=== PATIENT | male | born 1945 | race Caucasian/White ===

== ENCOUNTER 2018-10-07 09:22 | Emergency (ER) | payer OTHER, BC, SELFPAY ==
[2018-10-07 09:29] VITALS: BP 161/94; PULSE 72; RESP 18; TEMP 36.5; O2SAT 91
--- NOTE | 2018-10-07 09:40 | DI.RAD_ITS ---
SYMPTOM/DIAGNOSIS: FELL, ? FX, PAIN LEFT SHOULDER: There are no prior comparison exams. No fracture or dislocation is seen. There is mild spurring at the undersurface of the acromion. There are severe degenerative changes of the glenohumeral joint, greater inferiorly. IMPRESSION: Severe degenerative changes of the glenohumeral joint. LEFT ELBOW: There is a fracture extending through the olecranon with separation of approximately 5 mm. Additional nondisplaced fractures are seen more proximally. There are a few tiny fracture fragments near the main fracture site. There is marked posterior soft tissue swelling as well as a joint effusion. The distal humeral and proximal radius appear intact. IMPRESSION: Olecranon fracture.
[2018-10-07] MEDS: Lidocaine 5% Patch 1 PATCH TP (09:57)
--- NOTE | 2018-10-07 10:13 | W.ED.GENAD ---
Discharge Plan Disposition Patient Disposition: HOME Condition: Good Discharge Details Chief Complaint: Orthopedic Clinical Impression: Fall, Fracture, olecranon, Acute pain of left shoulder Primary Care Provider: None,None ED Provider: Jose Francisco Cota Home Meds and New Rx's Prescriptions: New acetaminophen [Mapap Extra Strength] 500 MG tablet 1,000 mg PO Q6H 5 Days Qty: 60 RF: 0 ibuprofen [Motrin IB] 200 MG tablet 600 mg PO Q6H 5 Days Qty: 60 RF: 0 hydrocodone-acetaminophen [Roff] 7.5-325 mg tablet 1 tab PO Q6H Qty: 5 RF: 0 No Action aspirin 81 MG tablet,chewable 81 mg PO DAILY RF: 0 valsartan 40 MG tablet PO DAILY RF: 0 Discharge Instructions Instructions: Elbow Fracture in Adults (ED) Additional Instructions: Please take the Tylenol and Motrin as needed for the pain. Please take the Roff is only as needed for breakthrough pain. Please do not take the Roff and the Tylenol together as they can interact and both have acetaminophen in them. Please follow-up immediately with Dr. Rodarte. If you notice any worsening of your symptoms, or any new symptoms such as vomiting, diarrhea, fever, chills, shortness of breath, chest pain, numbness, weakness, or fainting , please return immediately to the emergency department for reevaluation. Please follow up with your primary care provider as soon as possible for reassessment and reevaluation. As always, it was a pleasure participating in your medical care today. Referrals: Andrei Rodarte MD [ [facility] STAFF PHYSICIAN] - Medical Decision Making This is a pleasant 72-year-old male who presents for evaluation of left shoulder and elbow pain after a fall. He slipped on some ice while at work, landed mainly on his left shoulder and left elbow. He very gently hit his head on the ground, but denies any loss of consciousness or pain. He is on no significant blood thinners. Physical exam demonstrates no head pain, neck pain, or other abnormalities aside for left shoulder and left elbow pain. The patient is clearly neurovascular intact on exam at this time. Differential includes proximal humeral fracture versus less likely shoulder dislocation. We will get an x-ray to also evaluate for potential elbow injury/fracture. 12 cc of 2% lidocaine with 0.5% bupivacaine were injected into his left shoulder space, and the patient had notable improvement of his pain with. 11:18 AM Patient's x-ray of the right shoulder have returned negative and there is no acute process noted. However the x-ray of the left elbow does demonstrate notable fracture of the left elbow at the olecranon. There is evidence of displacement. The patient remains neurovascularly intact distal to the injury site. Dr. Rodarte is a personal friend of the patient, and did come and evaluate the patient. He does recommend slinging for the time being with close orthopedic follow-up for potential surgery. Being neurovascularly intact with no other acute process sling was placed and the patient continues to demonstrate brisk capillary refill and normal sensation. Will be discharged home with close follow-up with Dr. Rodarte. I have extensively reviewed the treatment plan and discharge instructions with the patient and their family. I have addressed all patient concerns at this time. The patient and family was made aware of what symptoms to monitor for that would warrant a return to the emergency department. Discussed the plan with the patient and family, they demonstrate verbal understanding and agreement with our assessment and plan at this time. COMPARISON: No relevant prior studies available. FINDINGS: Bones/joints: Displaced fracture of the olecranon. There may be additional nondisplaced fractures in the more proximal ulna.. Degenerative changes in the humeral ulnar joint. There is no evidence of malalignment or dislocation. Soft tissues: Anterior joint effusion IMPRESSION: Displaced fracture of the olecranon. There may be additional nondisplaced fractures in the more proximal ulna.. Dictated and Authenticated by: Valorie Marques MD. COMPARISON: No relevant prior studies available. FINDINGS: Bones/joints: Significant Degenerative changes in the glenohumeral joint. There is no evidence of acute fracture.There is no evidence of malalignment or dislocation.. Soft tissues: Normal. IMPRESSION: 1. Significant Degenerative changes in the glenohumeral joint. 2. There is no evidence of acute fracture.. Dictated and Authenticated by: Valorie Marques MD. HPI General Date/Time Provider Initiated Documentation: 10/07/18 09:35. HPI Narrative: This is a 72-year-old male with no significant past medical history except for mild hypertension who present today for evaluation of left shoulder pain. The patient states that he was walking outside when he slipped and caught his fall with his elbows and left shoulder. This happened roughly 45 minutes prior to arrival. 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 Came here for further evaluation. He was wearing a thick, and did very lightly hit his head, but he denied any pain or loss of consciousness. He is not on any blood thinners. He denies any neck back or chest pain. He denies pain in his lower extremities or his right arm. Pain is mostly present in his left shoulder and left elbow, worse with movement. He denies any numbness or tingling. He denies any other complaints or modifying factors at this time. He has not taken any Tylenol or Motrin. Related Data Home Medications Medication Instructions Recorded Confirmed aspirin 81 mg PO DAILY 08/21/16 08/21/16 valsartan mg PO DAILY 08/21/16 acetaminophen [Mapap Extra 1,000 mg PO Q6H 5 Days #60 tab 10/07/18 Strength] hydrocodone-acetaminophen [Roff] 1 tab PO Q6H #5 tab 10/07/18 ibuprofen [Motrin Ib] 600 mg PO Q6H 5 Days #60 tab 10/07/18 Previous Rx's Medication Instructions Recorded acetaminophen [Mapap Extra 1,000 mg PO Q6H 5 Days #60 tab 10/07/18 Strength] hydrocodone-acetaminophen [Roff] 1 tab PO Q6H #5 tab 10/07/18 ibuprofen [Motrin Ib] 600 mg PO Q6H 5 Days #60 tab 10/07/18 Allergies Allergy/AdvReac Type Severity Reaction Status Date / Time lisinopril [From Zestril] Allergy Severe Swelling/Ed Unverified 10/07/18 09:33 bubba General Stated Complaint: Orthopedic TAMI: 3 Review of Systems Review of Systems All systems reviewed & are unremarkable except as noted in HPI and below Exam Narrative Exam Narrative: 1.Const: Well-nourished, Well-developed, appearing stated age 2.Eyes: PERRL, no conjunctival injection, and symmetrical lids. 3.ENT: Atraumatic external nose and ears. Moist MM. Neck: Symmetric, trachea midline, No thyromegaly. Slightly narrow external auditory canals peer there is no evidence of raccoon eyes, kelley sign, CSF rhinorrhea, mastoid tenderness, cranial crepitus, hemotympanum, exophthalmos, or hyphema. Patient demonstrates intact dentition with no signs of tooth avulsion or fracture, no signs of jaw deformity, no evidence of a LeFort's fracture, with an intact palate, nose and orbital region. There is no evidence of a nasal septal hematoma. No proptosis. Jaw closes symmetrically. Airway is clear. 4.CVS: +S1/S2, No murmurs or gallops. Peripheral pulses 2+ and equal in all extremities. Brisk capillary refill in all extremities. 5.RESP: Unlabored respiratory effort. Clear to auscultation bilaterally. No wheezes rales or rhonchi 6.GI: Soft, Nontender/Nondistended, No hepatosplenomegaly. No guarding or rebound. 7.MSK: No midline tenderness to palpation over the CTLS spine. Normal ROM in flexion, extension, side bend, and rotation. Patient has +5 out of 5 strength in the lower extremities in dorsiflexion and plantarflexion, knee flexion and extension, hip flexion and extension. There is +2 over 2 dorsalis pedis pulses bilaterally. There is normal sensation to the skin with light touch at the foot, knee, and hip. Normal saddle sensation. Good sensation over the deep sural nerve area bilaterally. Rectal exam deferred. +5 out of 5 strength in the medial, ulnar, radial nerve distribution bilaterally in the hands as well as intact light touch sensation to these dermatomes on the hands. Patient demonstrates mild swelling the anterior aspect of the left shoulder just below what appears to be the head of the humerus. It of the humerus appears to be in place, however the swelling is slightly atypical. Notable pain in that area. Decreased range of motion secondary to pain. Patient also demonstrates pain in the lateral medial and olcrenon aspect of the left elbow. No evidence of bruising or deformity. No significant swelling. Pain worse with movement. No evidence of nerve compromise at this time, sensation intact in the hand, and in the axillary region. Capillary refill is brisk in all fingers, radial pulse +2 bilaterally. 8.Skin: Warm, Dry. No rashes or lesions. 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 Sensation grossly intact, no focal neurologic deficits. 10.Psych: (AAO) x3. Appropriate mood and affect Course Vital Signs Temperature 36.5 C 10/07/18 09:29 Pulse 72 10/07/18 09:29 Respiratory Rate 18 10/07/18 09:29 Blood Pressure 161/94 H 10/07/18 09:29 Pulse Oximetry 91 L 10/07/18 09:29 Temperature 36.5 C 10/07/18 09:29 Temperature Source Temporal Artery Scan 10/07/18 09:29 Pulse 72 10/07/18 09:29 Respiratory Rate 18 10/07/18 09:29 Respiratory Effort Non-Labored 10/07/18 09:36 Blood Pressure 161/94 H 10/07/18 09:29 Blood Pressure Position Sitting 10/07/18 09:29 Pulse Oximetry 91 L 10/07/18 09:29 Oxygen Delivery Method Room Air 10/07/18 09:29 Oxygen Flow Rate 0 10/07/18 09:29 Pain Level 5 10/07/18 09:34
--- NOTE | 2018-10-07 10:20 | ED.GENADUL_ITS ---
Discharge Plan Disposition Patient Disposition: HOME Condition: Good Discharge Details Chief Complaint: Orthopedic Clinical Impression: Fall, Fracture, olecranon, Acute pain of left shoulder Primary Care Provider: None,None ED Provider: Jose Francisco Cota Home Meds and New Rx's Prescriptions: New acetaminophen [Mapap Extra Strength] 500 MG tablet 1,000 mg PO Q6H 5 Days Qty: 60 RF: 0 ibuprofen [Motrin IB] 200 MG tablet 600 mg PO Q6H 5 Days Qty: 60 RF: 0 hydrocodone-acetaminophen [[place]] 7.5-325 mg tablet 1 tab PO Q6H Qty: 5 RF: 0 No Action aspirin 81 MG tablet,chewable 81 mg PO DAILY RF: 0 valsartan 40 MG tablet PO DAILY RF: 0 Discharge Instructions Instructions: Elbow Fracture in Adults (ED) Additional Instructions: Please take the Tylenol and Motrin as needed for the pain. Please take the [place] is only as needed for breakthrough pain. Please do not take the [place] and the Tylenol together as they can interact and both have acetaminophen in them. Please follow-up immediately with Dr. Rodarte. If you notice any worsening of your symptoms, or any new symptoms such as vomiting, diarrhea, fever, chills, shortness of breath, chest pain, numbness, weakness, or fainting , please return immediately to the emergency department for reevaluation. Please follow up with your primary care provider as soon as possible for reassessment and reevaluation. As always, it was a pleasure participating in your medical care today. Referrals: Andrei Rodarte MD [ [facility]FF PHYSICIAN] - Medical Decision Making This is a pleasant 72-year-old male who presents for evaluation of left shoulder and elbow pain after a fall. He slipped on some ice while at work, landed mainly on his left shoulder and left elbow. He very gently hit his head on the ground, but denies any loss of consciousness or pain. He is on no significant blood thinners. Physical exam demonstrates no head pain, neck pain, or other abnormalities aside for left shoulder and left elbow pain. The patient is clearly neurovascular intact on exam at this time. Differential includes proximal humeral fracture versus less likely shoulder dislocation. We will get an x-ray to also evaluate for potential elbow injury/fracture. 12 cc of 2% lidocaine with 0.5% bupivacaine were injected into his left shoulder space, and the patient had notable improvement of his pain with. 11:18 AM Patient's x-ray of the right shoulder have returned negative and there is no acute process noted. However the x-ray of the left elbow does demonstrate notable fracture of the left elbow at the olecranon. There is evidence of displacement. The patient remains neurovascularly intact distal to the injury site. Dr. Rodarte is a personal friend of the patient, and did come and evaluate the patient. He does recommend slinging for the time being with close orthopedic follow-up for potential surgery. Being neurovascularly intact with no other acute process sling was placed and the patient continues to demonstrate brisk capillary refill and normal sensation. Will be discharged home with close follow-up with Dr. Rodarte. I have extensively reviewed the treatment plan and discharge instructions with the patient and their family. I have addressed all patient concerns at this time. The patient and family was made aware of what symptoms to monitor for that would warrant a return to the emergency department. Discussed the plan with the patient and family, they demonstrate verbal understanding and agreement with our assessment and plan at this time. COMPARISON: No relevant prior studies available. FINDINGS: Bones/joints: Displaced fracture of the olecranon. There may be additional nondisplaced fractures in the more proximal ulna.. Degenerative changes in the humeral ulnar joint. There is no evidence of malalignment or dislocation. Soft tissues: Anterior joint effusion IMPRESSION: Displaced fracture of the olecranon. There may be additional nondisplaced fractures in the more proximal ulna.. Dictated and Authenticated by: Valorie Marques MD. COMPARISON: No relevant prior studies available. FINDINGS: Bones/joints: Significant Degenerative changes in the glenohumeral joint. There is no evidence of acute fracture.There is no evidence of malalignment or dislocation.. Soft tissues: Normal. IMPRESSION: 1. Significant Degenerative changes in the glenohumeral joint. 2. There is no evidence of acute fracture.. Dictated and Authenticated by: Valorie Marques MD. HPI General Date/Time Provider Initiated Documentation: 10/07/18 09:35 . HPI Narrative: This is a 72-year-old male with no significant past medical history except for mild hypertension who present today for evaluation of left shoulder pain. The patient states that he was walking outside when he slipped and caught his fall with his elbows and left shoulder. This happened roughly 45 minutes prior to arrival. 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 Came here for further evaluation. He was wearing a thick, and did very lightly hit his head, but he denied any pain or loss of consciousness. He is not on any blood thinners. He denies any neck back or chest pain. He denies pain in his lower extremities or his right arm. Pain is mostly present in his left shoulder and left elbow, worse with movement. He denies any numbness or tingling. He denies any other complaints or modifying factors at this time. He has not taken any Tylenol or Motrin. Related Data Home Medications Medication Instructions Recorded Confirmed aspirin 81 mg PO DAILY 08/21/16 08/21/16 valsartan mg PO DAILY 08/21/16 acetaminophen [Mapap Extra 1,000 mg PO Q6H 5 Days #60 tab 10/07/18 Strength] hydrocodone-acetaminophen [[place]] 1 tab PO Q6H #5 tab 10/07/18 ibuprofen [Motrin Ib] 600 mg PO Q6H 5 Days #60 tab 10/07/18 Previous Rx's Medication Instructions Recorded acetaminophen [Mapap Extra 1,000 mg PO Q6H 5 Days #60 tab 10/07/18 Strength] hydrocodone-acetaminophen [[place]] 1 tab PO Q6H #5 tab 10/07/18 ibuprofen [Motrin Ib] 600 mg PO Q6H 5 Days #60 tab 10/07/18 Allergies Allergy/AdvReac Type Severity Reaction Status Date / Time lisinopril [From Zestril] Allergy Severe Swelling/Ed Unverified 10/07/18 09:33 bubba General Stated Complaint: Orthopedic TAMI: 3 Review of Systems Review of Systems All systems reviewed & are unremarkable except as noted in HPI and below Exam Narrative Exam Narrative: 1.Const: Well-nourished, Well-developed, appearing stated age 2.Eyes: PERRL, no conjunctival injection, and symmetrical lids. 3.ENT: Atraumatic external nose and ears. Moist MM. Neck: Symmetric, trachea midline, No thyromegaly. Slightly narrow external auditory canals peer there is no evidence of raccoon eyes, kelley sign, CSF rhinorrhea, mastoid tenderness, cranial crepitus, hemotympanum, exophthalmos, or hyphema. Patient demonstrates intact dentition with no signs of tooth avulsion or fracture, no signs of jaw deformity, no evidence of a LeFort's fracture, with an intact palate, nose and orbital region. There is no evidence of a nasal septal hematoma. No proptosis. Jaw closes symmetrically. Airway is clear. 4.CVS: +S1/S2, No murmurs or gallops. Peripheral pulses 2+ and equal in all extremities. Brisk capillary refill in all extremities. 5.RESP: Unlabored respiratory effort. Clear to auscultation bilaterally. No wheezes rales or rhonchi 6.GI: Soft, Nontender/Nondistended, No hepatosplenomegaly. No guarding or rebound. 7.MSK: No midline tenderness to palpation over the CTLS spine. Normal ROM in flexion, extension, side bend, and rotation. Patient has +5 out of 5 strength in the lower extremities in dorsiflexion and plantarflexion, knee flexion and extension, hip flexion and extension. There is +2 over 2 dorsalis pedis pulses bilaterally. There is normal sensation to the skin with light touch at the foot, knee, and hip. Normal saddle sensation. Good sensation over the deep sural nerve area bilaterally. Rectal exam deferred. +5 out of 5 strength in the medial, ulnar, radial nerve distribution bilaterally in the hands as well as intact light touch sensation to these dermatomes on the hands. Patient demonstrates mild swelling the anterior aspect of the left shoulder just below what appears to be the head of the humerus. It of the humerus appears to be in place, however the swelling is slightly atypical. Notable pain in that area. Decreased range of motion secondary to pain. Patient also demonstrates pain in the lateral medial and olcrenon aspect of the left elbow. No evidence of bruising or deformity. No significant swelling. Pain worse with movement. No evidence of nerve compromise at this time, sensation intact in the hand, and in the axillary region. Capillary refill is brisk in all fingers, radial pulse +2 bilaterally. 8.Skin: Warm, Dry. No rashes or lesions. 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 Sensation grossly intact, no focal neurologic deficits. 10.Psych: (AAO) x3. Appropriate mood and affect Course Vital Signs Temperature 36.5 C 10/07/18 09:29 Pulse 72 10/07/18 09:29 Respiratory Rate 18 10/07/18 09:29 Blood Pressure 161/94 H 10/07/18 09:29 Pulse Oximetry 91 L 10/07/18 09:29 Temperature 36.5 C 10/07/18 09:29 Temperature Source Temporal Artery Scan 10/07/18 09:29 Pulse 72 10/07/18 09:29 Respiratory Rate 18 10/07/18 09:29 Respiratory Effort Non-Labored 10/07/18 09:36 Blood Pressure 161/94 H 10/07/18 09:29 Blood Pressure Position Sitting 10/07/18 09:29 Pulse Oximetry 91 L 10/07/18 09:29 Oxygen Delivery Method Room Air 10/07/18 09:29 Oxygen Flow Rate 0 10/07/18 09:29 Pain Level 5 10/07/18 09:34
--- NOTE | 2018-10-07 10:55 | DI.VRAD_ITS ---
EXAM: XR Left Elbow Complete, 3 or more Views EXAM DATE/TIME: 10/07/2018 10:23 AM CLINICAL HISTORY: 72 years old, male; Injury or trauma; Fall; Initial encounter; Blunt trauma (contusions or hematomas; Elbow; Left TECHNIQUE: XR Left elbow, 3 or more views. COMPARISON: No relevant prior studies available. FINDINGS: Bones/joints: Displaced fracture of the olecranon. There may be additional nondisplaced fractures in the more proximal ulna.. Degenerative changes in the humeral ulnar joint. There is no evidence of malalignment or dislocation. Soft tissues: Anterior joint effusion IMPRESSION: Displaced fracture of the olecranon. There may be additional nondisplaced fractures in the more proximal ulna.. Dictated and Authenticated by: Valorie Marques MD. Ordering:REGINE Felton MD
--- NOTE | 2018-10-07 11:00 | DI.VRAD_ITS ---
EXAM: XR Left Shoulder Complete, 2 or More Views EXAM DATE/TIME: 10/07/2018 10:24 AM CLINICAL HISTORY: 72 years old, male; Pain; Shoulder; Left TECHNIQUE: XR Left shoulder complete 2 or more views. COMPARISON: No relevant prior studies available. FINDINGS: Bones/joints: Significant Degenerative changes in the glenohumeral joint. There is no evidence of acute fracture.There is no evidence of malalignment or dislocation.. Soft tissues: Normal. IMPRESSION: 1. Significant Degenerative changes in the glenohumeral joint. 2. There is no evidence of acute fracture.. Dictated and Authenticated by: Valorie Marques MD. Ordering:REGINE Felton MD
--- NOTE | 2018-10-07 15:36 | W.ORTHOCONSU ---
Date of service: 10/07/18 Time of Service: 10:36 History of Present Illness Chief Complaint: Left elbow and shoulder pain Narrative: Gomez is a 72-year-old who works and volunteers at [employer]. I have no bill outside the hospital for some years. He was walking into the [employer] [place] today when he slipped on some ice and landed with his arm slightly extended and behind him. He landed primarily on the posterior aspect the left elbow. He did immediate pain in his shoulder as well as in the elbow. His pain in the shoulder was anteriorly and the pain in the elbow was over the olecranon, posteriorly. patrol captain placed him into a sling and he was then brought to the emergency department. At rest, he does not have much pain but he tries to move the left shoulder he feels like he is unable to. He denies any numbness or tingling. He may have bumped his head he states but he had no loss of conscious and recalls all details of the event. He has had no previous issue with the left shoulder nor elbow but only occasional discomfort relieved with activity modification and anti-inflammatories. Consult [facility] with left shoulder injury and left olecranon fracture Assessment and Plan (1) Injury of left shoulder: Current visit: Yes Status: Acute Given the mechanism, I am concerned about possible rotator cuff injury. With the axial load of the arm in an extended position there is a concern for a near dislocation event which could have possibly torn subscapularis other aspects of the rotator cuff. X-rays of the left shoulder show some arthritic change, especially inferiorly. However, no malpositioning of the glenohumeral joint. There is no obvious osteophyte fracture or small glenoid fracture. Without previous issue of the left shoulder and his drastic examination and the known fracture of the left olecranon which will require surgery, I do think there is indication for an MRI of the left shoulder to evaluate the rotator cuff. Given the ipsilateral injury to the olecranon needing surgery, if there was a traumatic tearing of the rotator cuff I would offer early fixation. Qualifiers: Encounter type: initial encounter Qualified Code(s): S49.92XA - Unspecified injury of left shoulder and upper arm, initial encounter (2) Displaced fracture of olecranon process of left ulna with intra-articular extension: Current visit: Yes Status: Acute X-rays of the left elbow demonstrate a displaced olecranon fracture. There is one primary component the olecranon to to primary pieces with a small secondary fracture line seen more proximally which may be incomplete. No other associated radial fracture seen. No distal humerus fracture. Given this injury I did recommend surgery for Gomez. I discussed him the technical details of a tension band construct versus plate and screws. He has no particular preference. I outlined the risk of the procedure to include bleeding, infection, pain, stiffness, damage to nerves and vessels, damage to muscle tendons, malunion, nonunion, hardware prominence, hardware failure, need for repeat procedures, skin breakdown. Despite these risk, he does elect to proceed. Again, given the shoulder injury, I would like to obtain an MRI first. He was placed to a sling for the left arm. I will expedite the MRI this week and likely fix this as soon as we have an understanding of what is going on with the shoulder. Qualifiers: Encounter type: initial encounter Fracture type: closed Qualified Code(s): S52.032A - Displaced fracture of olecranon process with intraarticular extension of left ulna, initial encounter for closed fracture Review of Systems Review of Systems All systems reviewed & are unremarkable except as noted in HPI and below COUNTS INCLUDE 234 BEDS AT THE [facility] Medical History Hypertension (Chronic) Exam Narrative Exam Narrative: Gomez is in no acute distress. He is sitting upright on the stretcher. Alert and oriented x3. Head is normocephalic and atraumatic. Left arm is in a sling. Evaluation of the left arm shows some swelling and pain to palpation of the anterior aspect the shoulder. Swelling is seen primarily anteriorly. There is no pain to palpation of the clavicle and over the acromion. There is exquisite pain to palpation over the anterior aspect of the proximal humerus at the level of the lesser tuberosity just distal to the acromion. There is no pain to palpation down the length of the humerus. When he relaxes, I am able to passively move the shoulder without any pain. When I asked him to actively move the shoulder he has exquisite pain and is unable to abduct or forward flex the left arm. The left elbow show some fullness and swelling over the olecranon with mild crepitus and pain. There is a palpable defect. Range of motion was not tested. No pain along the medial or lateral epicondyles. Sensation intact light touch of the axilla, median, radial, ulnar nerves. Hand is warm well perfused. Results Last Vital Signs Temp 36.5 C 10/07/18 09:29 Pulse 72 10/07/18 09:29 Resp 18 10/07/18 09:29 BP 161/94 H 10/07/18 09:29 Pulse Ox 91 L 10/07/18 09:29
--- NOTE | 2018-10-08 20:39 | OCONE_ITS ---
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 I have no bill outside the hospital for some years. He was walking into the [employer] [place] today when he slipped on some ice and landed with his arm slightly extended and behind him. He landed primarily on the posterior aspect the left elbow. He did immediate pain in his shoulder as well as in the elbow. His pain in the shoulder was anteriorly and the pain in the elbow was over the olecranon, posteriorly. bellmaker placed him into a sling and he was then brought to the emergency department. At rest, he does not have much pain but he tries to move the left shoulder he feels like he is unable to. He denies any numbness or tingling. He may have bumped his head he states but he had no loss of conscious and recalls all details of the event. He has had no previous issue with the left shoulder nor elbow but only occasional discomfort relieved with a ctivity modification and anti-inflammatories. Consult [facility] Fall with left shoulder injury and left olecranon fracture Assessment and Plan (1) Injury of left shoulder: Current visit: Yes Status: Acute Given the mechanism, I am concerned about possible rotator cuff injury. With the axial load of the arm in an extended position there is a concern for a near dislocation event which could have possibly torn subscapularis other aspects of the rotator cuff. X-rays of the left shoulder show some arthritic change, especially inferiorly. However, no malpositioning of the glenohumeral joint. There is no obvious osteophyte fracture or small glenoid fracture. Without previous issue of the left shoulder and his drastic examination and the known fracture of the left olecranon which will require surgery, I do think there is indication for an MRI of the left shoulder to evaluate the rotator cuff. Given the ipsilateral injury to the olecranon needing surgery, if there was a traumatic tearing of the rotator cuff I would offer early fixation. Qualifiers: Encounter type: initial encounter Qualified Code(s): S49.92XA - Unspecified injury of left shoulder and upper arm, initial encounter (2) Displaced fracture of olecranon process of left ulna with intra-articular extension: Current visit: Yes Status: Acute X-rays of the left elbow demonstrate a displaced olecranon fracture. There is one primary component the olecranon to to primary pieces with a small secondary fracture line seen more proximally which may be incomplete. No other associated radial fracture seen. No distal humerus fracture. Given this injury I did recommend surgery for Gomez. I discussed him the technical details of a tension band construct versus plate and screws. He has no particular preference. I outlined the risk of the procedure to include bleeding, infection, pain, stiffness, damage to nerves and vessels, damage to muscle tendons, malunion, nonunion, hardware prominence, hardware failure, need for repeat procedures, skin breakdown. Despite these risk, he does elect to proceed. Again, given the shoulder injury, I would like to obtain an MRI first. He was placed to a sling for the left arm. I will expedite the MRI this week and likely fix this as soon as we have an understanding of what is going on with the shoulder. Qualifiers: Encounter type: initial encounter Fracture type: closed Qualified Co de(s): S52.032A - Displaced fracture of olecranon process with intraarticular extension of left ulna, initial encounter for closed fracture Review of Systems Review of Systems All systems reviewed & are unremarkable except as noted in HPI and below PFSH Medical History Hypertension (Chronic) Exam Narrative Exam Narrative: Gomez is in no acute distress. He is sitting upright on the stretcher. Alert and oriented x3. Head is normocephalic and atraumatic. Left arm is in a sling. Evaluation of the left arm shows some swelling and pain to palpation of the anterior aspect the shoulder. Swelling is seen primarily anteriorly. There is no pain to palpation of the clavicle and over the acromion. There is exquisite pain to palpation over the anterior aspect of the proximal humerus at the level of the lesser tuberosity just distal to the acromion. There is no pain to palpation down the length of the humerus. When he relaxes, I am able to passively move the shoulder without any pain. When I asked him to actively move the shoulder he has exquisite pain and is unable to abduct or forward flex the left arm. The left elbow show some fullness and swelling over the olecranon with mild crepitus and pain. There is a palpable defect. Range of motion was not tested. No pain along the medial or lateral epicondyles. Sensation intact light touch of the axilla, median, radial, ulnar nerves. Hand is warm well perfused. Results Last Vital Signs Temp 36.5 C 10/07/18 09:29 Pulse 72 10/07/18 09:29 Resp 18 10/07/18 09:29 BP 161/94 H 10/07/18 09:29 Pulse Ox 91 L 10/07/18 09:29
== END 2018-10-07 11:48 | disposition home or self-care (01) ==
PROVIDERS: Emergency Provider Student in an Organized Health Care Education/Training Program
DX: S49.92XA Unspecified injury of left shoulder and upper arm, initial encounter (principal); S52.032A Displaced fracture of olecranon process with intraarticular extension of left ulna, initial encounter for closed fracture; W00.0XXA Fall on same level due to ice and snow, initial encounter; I10 Essential (primary) hypertension
CPT/HCPCS: 64450; 99253; 99284; 73030; 73080; 99281; L3670

== ENCOUNTER 2018-10-09 07:58 | Outpatient (CLI) | payer OTHER, MEDICARE, BC, SELFPAY ==
--- NOTE | 2018-10-09 11:00 | DI.MRI_ITS ---
SYMPTOM/DIAGNOSIS: PAIN, FELL, ROTATOR CUFF TEAR, S46.011A LEFT SHOULDER MRI: Comparison is made with plain films dated 10/07/18. Proton density and fat suppressed T 2 axial and coronal and T 1 and fat suppressed T 2 sagittal sequences were performed. The exam is limited by patient motion and poor fat suppression on the lateral aspect of the images. There is a large amount of edema in the subcutaneous fat. There is fluid in the joint as well as subcoracoid bursa. There is a full thickness supraspinatus tear with retraction of the tendon to the level of the acromion. There is some spurring at the undersurface of the acromion. There is also a tear with retraction of the infraspinatus tendon. There is severe atrophy of the infraspinatus muscle and approximately 50% of muscle atrophy in the supraspinatus muscle. The teres minor tendon appears intact. There is no teres minor muscle atrophy. The subscapularis tendon also shows a full thickness tear and retraction to the level of the glenoid. The biceps tendon is not well seen and may also be torn. There is a large amount of high signal in the anterior deltoid muscle. There appears to be a large muscle tear of the anterior deltoid muscle with disruption of muscle fibers. No fracture is identified. There are degenerative changes of the glenohumeral joint. IMPRESSION: Full thickness tears with retraction of the supraspinatus, infraspinatus and subscapularis tendons. Biceps tendon is also likely torn. Tear of the anterior deltoid muscle. Given the muscle atrophy, the infraspinatus and supraspinatus tendon tears could be chronic.
== END 2018-10-09 08:18 ==
PROVIDERS: Visit Provider Student in an Organized Health Care Education/Training Program
DX: M25.512 Pain in left shoulder (principal); S43.011A Anterior subluxation of right humerus, initial encounter; W19.XXXA Unspecified fall, initial encounter
CPT/HCPCS: 73221

== ENCOUNTER 2018-10-26 15:13 | Emergency (ER) | payer OTHER, MEDICARE, BC, SELFPAY ==
[2018-10-26 15:20] VITALS: BP 119/68; PULSE 88; RESP 24; TEMP 36.7; O2SAT 91
--- NOTE | 2018-10-26 15:41 | ED.GENADUL_ITS ---
Discharge Plan Disposition Patient Disposition: HOME Condition: Stable Discharge Details Chief Complaint: RespSymp Clinical Impression: COPD (chronic obstructive pulmonary disease), Hypoxia Primary Care Provider: None,None ED Provider: Nigel Kyle Home Meds and New Rx's Prescriptions: No Action amlodipine 2.5 mg Tablet 2.5 mg PO DAILY RF: 0 Multi Vitamin 9 mg iron/15 mL Liquid RF: 0 sennosides-docusate sodium [Senna with Docusate Sodium] 8.6-50 mg Tablet RF: 0 gabapentin 300 mg Capsule 300 mg PO TID RF: 0 calcium carbonate-vitamin D3 [Calcium 500 + D] 500 mg(1,250mg) -400 unit Tablet RF: 0 aspirin 81 MG tablet,chewable 81 mg PO DAILY RF: 0 hydrocodone-acetaminophen [Wentworth] 7.5-325 mg tablet 1 tab PO Q6H Qty: 5 RF: 0 Discharge Instructions Instructions: COPD (Chronic Obstructive Pulmonary Disease) (ED) Additional Instructions: In order to get home oxygen your primary care provider has to order a walking oxygen study IF you feel you are becoming more short of breath or have high fevers return to the emergency department Medical Decision Making 73 yo male comes in without complaints but at the request of his family due to low oxygen saturations. He monitors his oxygen saturaton at home and since he had a bleb removal on the right in 2012 he states he has oxygen saturations in the room air of 85%-91%. He had a left rotator [place] earlier this [place] [facility] [place] saturations in the mid 80's and d/c'd home with requests to f/u with pulmonology and pcp. His oxygen level while sleeping after d/c was in the 70's so he wsa told by family to come here. He was not wearing his cpap during this episode. He is currently without symptoms, denies sob, chest pain and has normal lung exam without jvd. His room air saturation here is 87% on my exam. Do not feel any emergent lab work or imaging indicated given 5 years of this, does likely need home o2. If unable to arrange this through the ED will refer to pcp respiratory therapy unable to arrange for home o2 through ED. HE apparently was offered home o2 while [place] [facility] [place] declined there. HE is just requesting a nebulizer machine and states his daughter can help arrange for home o2 tomorrow. He reminas hd stable and declines admission. He will f/u with his pcp and return precautions given Differential Diagnosis atelectasis, copd HPI General Mode of arrival: ambulatory . Date/Time Provider Initiated Documentation: 10/26/18 15:19 . Limitations to Documentation: no limitations . Information obtained by: patient . History of Present Illness 73 year old M presents to the emergency department with the chief complaint of low oxygen saturation, Patient started experiencing this year(s) (5) and it has been constant. No relieving factors improve symptom(s), No exacerbating factors reported . Related Data Home Medications Medication Instructions Recorded Confirmed aspirin 81 mg PO DAILY 08/21/16 10/26/18 hydrocodone-acetaminophen [Wentworth] 1 tab PO Q6H #5 tab 10/07/18 10/26/18 amlodipine 2.5 mg PO DAILY 10/26/18 10/26/18 calcium carbonate-vitamin D3 10/26/18 [Calcium 500 + D] gabapentin 300 mg PO TID 10/26/18 10/26/18 [id number] fum 10/26/18 [Multi Vitamin] sennosides-docusate sodium [Senna 10/26/18 with Docusate Sodium] Previous Rx's Medication Instructions Recorded hydrocodone-acetaminophen [Wentworth] 1 tab PO Q6H #5 tab 10/07/18 Allergies Allergy/AdvReac Type Severity Reaction Status Date / Time lisinopril [From Zestril] Allergy Severe Swelling/Ed Unverified 10/07/18 09:33 bubba General Stated Complaint: RespSymp TAMI: 3 Review of Systems Review of Systems All systems reviewed & are unremarkable except as noted in HPI and below Constitutional Denies chills, Denies fever(s) and Denies weakness ENT Denies change in voice Cardiovascular Denies chest pain and Denies dyspnea Respiratory Denies cough and Denies dyspnea Gastrointestinal Denies abdominal pain, Denies nausea and Denies vomiting Musculoskeletal Denies joint swelling Integumentary/Breasts Denies rash Neurologic Denies weakness PFSH Medical History Hypertension (Chronic) Social History Smoking/Tobacco Use Status: Former Tobacco Use Substance use type: does not use Do you feel safe at home: Yes Do you feel safe in your relationship?: Yes Exam Const General: no acute distress Orientation: alert HENMT Head: normal to inspection Ears: external ears normal General nose exam: external nose normal Mouth: moist mucous membranes Eyes General: appearance normal, both eyes and all related structures Neck Neck: normal visual inspection Resp Effort & Inspection: normal respiratory effort and able to speak in complete sentences Cardio Rate: regular rate Skin General skin exam: no rashes or lesions noted Neuro General: alert and oriented x3 Extrem General: normal capillary refill Psych Mental Status: mental status grossly normal Course Vital Signs Temperature 36.7 C 10/26/18 15:20 Pulse 88 10/26/18 15:20 Respiratory Rate 24 10/26/18 15:20 Blood Pressure 119/68 10/26/18 15:20 Pulse Oximetry 91 L 10/26/18 15:20 Temperature 36.7 C 10/26/18 15:20 Pulse 88 10/26/18 15:20 Respiratory Rate 24 10/26/18 15:20 Respiratory Effort Non-Labored 10/26/18 15:33 Blood Pressure 119/68 10/26/18 15:20 Blood Pressure Position Sitting 10/26/18 15:20 Pulse Oximetry 91 L 10/26/18 15:20 Oxygen Delivery Method Room Air 10/26/18 15:20 Oxygen Flow Rate 0 10/26/18 15:20
[2018-10-26] MEDS: Albuterol HFA 8 GM 60 PUFF INH IH (16:46)
--- NOTE | 2018-10-26 16:46 | NUR.NOTE ---
Nursing Note: Pt presents with no acute resp distress. oxygen 87-92% on room air. Pt states this is his normal range. RT in to consult with patient.
--- NOTE | 2018-10-27 12:45 | RESPIRATORY ---
10/26/18- RT requested by Dr. Kyle to assess Pt for home O2 Qualification. Found Pt 86% on RA. After discussing HX with he and his of a recent D?C from [facility] [place] for Left Rotator Cuff surgery they explained he qualified by 6 MIN O2 walk with RT there. Pt and refused O2 on D/C at [facility], even with Physician and RT urging. Preents now today after low SPO2 saturations on his home SPO2 monitor. I explained to Pt and his that I cannot qualify him for home O2 from the ER as guidelines do not allow as it's considered an acute process. On 2 LPM NC SPO2 93% without activity. Pt is requesting a nebulizer machine and alb. nebs to go home with which, I did qualify him for . I instructed both, Pt and on how to set the nebulizer cup with machine up and ho wto dispense the medication. was able to demonstrate back to me. Ventolin MDI & spacer was taught and demonstrated back to me by Pt. Before the Pt. left his requested I speak to their daughter who is an ADVERTISING SPECIALIST. I went over with her what I had done and handed the phone over to Dr. Kyle.
--- NOTE | 2018-10-29 08:08 | CMPROGNOTE_ITS ---
Care Management Progress Note 10/29-Dr. Kyle requested assistance with establishing a PCP. Jesus Baldwin certification and selection specialist. Referral faxed to [facility] this am.
--- NOTE | 2018-10-29 08:08 | PDOC.ERCMPRO ---
Care Management Progress Note 10/29-Dr. Kyle requested assistance with establishing a PCP. Jesus Baldwin director of marketing communications. Referral faxed to [facility] this am.
== END 2018-10-26 16:45 | disposition home or self-care (01) ==
PROVIDERS: Emergency Provider Emergency Medicine
DX: J44.9 Chronic obstructive pulmonary disease, unspecified (principal); R09.02 Hypoxemia; I10 Essential (primary) hypertension; Z87.891 Personal history of nicotine dependence
CPT/HCPCS: 99283

== ENCOUNTER 2019-08-20 03:08 | Outpatient (CLI) | payer MEDICARE, BC, SELFPAY ==
[2019-08-20 12:51] LABS: Calculated LDL 98 mg/dL; Cholesterol 173 mg/dL (<200); HDL Cholesterol 54 mg/dL (40-60); Triglyceride 109 mg/dL (<150)
[2019-08-20 13:08] LABS: Hemoglobin A1C 5.5 % (3.8-5.6)
== END 2019-08-20 03:28 ==
PROVIDERS: PCP Family Medicine; Visit Provider Family Medicine
DX: E78.5 Hyperlipidemia, unspecified (principal); R73.9 Hyperglycemia, unspecified
CPT/HCPCS: 36415; 80061; 83036

== ENCOUNTER → 2023-07-18 10:15 | Outpatient (BNVA) | payer MEDICARE, BC, SELFPAY | PROVIDERS: PCP Family Medicine; Referring Provider Family Medicine; Visit Provider Physician Assistant Surgical | DX: J44.9 Chronic obstructive pulmonary disease, unspecified (principal); R06.02 Shortness of breath; G47.33 Obstructive sleep apnea (adult) (pediatric) | CPT/HCPCS: 99205 ==

== ENCOUNTER 2023-08-02 11:53 | Outpatient (RCR) | payer SELFPAY ==
[2023-07-21 11:24] VITALS: BP 137/72; PULSE 68; O2SAT 94
[2023-08-02 14:27] VITALS: BP 137/76; PULSE 68
[2023-08-04 12:36] VITALS: BP 135/72; PULSE 72; O2SAT 89
== END 2023-08-06 23:59 | disposition home or self-care (01) ==
LOC: CR 11:53
PROVIDERS: PCP Family Medicine; Visit Provider Family Medicine
DX: R69 Illness, unspecified (principal)

== ENCOUNTER → 2023-08-09 19:30 | Outpatient (CLI) | payer MEDICARE, BC, SELFPAY ==
--- NOTE | 2023-08-09 08:45 | DI.RAD_ITS ---
Exam(s) XR LUMBAR SPINE COMPLETE EXAM: XR LUMBAR SPINE COMPLETE CLINICAL HISTORY: rt sciatica, dorsalgia, M54.9. TECHNIQUE: 2D digital imaging was performed. Five views. COMPARISON: No exams were available for comparison FINDINGS: Prominent endplate osteophytes noted throughout. Severe narrowing of the disc spaces throughout. Sli ght degenerative scoliosis. Apparent fusion between the L4 and L5 vertebral bodies. No spondylolysi s or spondylolisthesis. SI joints are unremarkable. Distal aorta and iliac arteries show calcificat ion. IMPRESSION: Severe degenerative disc changes throughout. DATA REPOSITORY: RADIATION DOSE DELIVERED:
== END ==
PROVIDERS: PCP Family Medicine; Visit Provider Family Medicine
DX: M51.36 Other intervertebral disc degeneration, lumbar region (principal)
CPT/HCPCS: 72110

== ENCOUNTER → 2023-08-24 02:16 | Outpatient (CLI) | payer MEDICARE, BC, SELFPAY ==
--- NOTE | 2023-08-24 07:45 | DI.MRI_ITS ---
Exam(s) MR LUMBAR SPINE WO EXAM: MR LUMBAR SPINE WO CLINICAL HISTORY: low back pain,rt sciatica,m54.50. TECHNIQUE: Multiplanar multisequence MRI of the Lumbar spine was performed. COMPARISON: CR XR LUMBAR SPINE COMPLETE from 08/09/2023 FINDINGS: Bones: The last intervertebral disc space is designated the L5/S1 level for the numbering purpose of this ex amination. The vertebral body heights are well maintained. Prominent endplate osteophytes throughout Alignment: Unremarkable. Marrow signal: Degenerative signal changes in the endplates.. Cord: The conus tip ends at the L1-2 level. It is of normal size and signal intensity. T12-L1: Severe loss of disc height. Prominent endplate osteophytes eccentric toward the right. No f ocal disc herniation is present. No central spinal canal stenosis.Moderate bilateral neural foramina l narrowing. L1-2: Severe loss of disc height. Prominent endplate osteophytes. Facet degenerative changes and li gamentous hypertrophy. No focal disc herniation is present. Mild central canal stenosis.Severe ri ght and moderate left neural foraminal narrowing. L2-3:Severe loss of disc height. Prominent circumferentially projecting osteophytes. Facet degenera tive changes and ligamentous hypertrophy. No focal disc herniation is present. Moderate central can al stenosis.Moderate bilateral neural foraminal narrowing. L3-4: Severe loss of disc height eccentric toward the left with prominent endplate osteophytes. Broa d-based disc bulging. Prominent facet joint degenerative changes. Moderate to severe central canal stenosis. Severe left and mild right neural foraminal narrowing.No focal disc herniation is present. L4-5: Loss of disc height. Bony fusion across the mid to left side of the disc with prominent bridgi ng osteophytes. Facet degenerative changes. No focal disc herniation is present. Mild central cristela l stenosis.Moderate bilateral neural foraminal narrowing. L5-S1: Severe loss of disc height. Broad-based disc osteophytes. Facet degenerative changes. Frantz ectomy defect on the right. Mild central canal stenosis. Severe bilateral neural foraminal narrowin g.No focal disc herniation is present. The visualized SI joints and sacrum are unremarkable. Soft tissues: The paraspinal soft tissues are unremarkable. Multiple bilateral renal cysts are inci dentally noted. aorta normal in diameter. IMPRESSION: Extensive degenerative disc changes and facet degenerative changes throughout. The findings cause mo derate to severe central canal stenosis at L3-4. There is moderate central canal stenosis at L2-3 an d mild central canal stenosis at L1-2, L4-5 and L5-S1. Multilevel neural foraminal narrowing, most severe at L5-S1 bilaterally. DATA REPOSITORY:
== END ==
PROVIDERS: PCP Family Medicine; Visit Provider Family Medicine
DX: M48.062 Spinal stenosis, lumbar region with neurogenic claudication (principal)
CPT/HCPCS: 72148

== ENCOUNTER 2023-09-06 13:26 | Outpatient (RCR) | payer SELFPAY ==
[2023-08-07 00:12] VITALS: BP 135/72; PULSE 72
[2023-08-09 11:52] VITALS: BP 143/80; PULSE 79; O2SAT 90
[2023-08-11 14:48] VITALS: BP 142/77; PULSE 82; O2SAT 86
[2023-08-16 13:22] VITALS: BP 136/68; PULSE 74; O2SAT 92
[2023-08-23 11:14] VITALS: BP 136/80; PULSE 75; O2SAT 93
[2023-08-25 13:40] VITALS: BP 136/70; PULSE 81; O2SAT 90
[2023-09-01 11:06] VITALS: BP 125/67; PULSE 78; O2SAT 91
[2023-09-06 13:19] VITALS: BP 131/74; PULSE 79; O2SAT 90
== END 2023-09-06 23:59 | disposition home or self-care (01) ==
LOC: CR 13:26
PROVIDERS: PCP Family Medicine; Visit Provider Internal Medicine Interventional Cardiology
DX: R69 Illness, unspecified (principal)

== ENCOUNTER 2023-09-29 11:30 | Outpatient (RCR) | payer SELFPAY ==
[2023-09-07 00:20] VITALS: BP 135/72; PULSE 72
[2023-09-08 11:07] VITALS: BP 114/73; PULSE 76; O2SAT 90
[2023-09-13 12:26] VITALS: BP 126/76; PULSE 82; O2SAT 90
[2023-09-15 10:57] VITALS: BP 139/76; PULSE 75; O2SAT 92
[2023-09-27 10:54] VITALS: BP 130/72; PULSE 68; O2SAT 91
[2023-09-29 12:52] VITALS: BP 133/76; PULSE 74; O2SAT 89
== END 2023-10-05 23:59 | disposition home or self-care (01) ==
LOC: CR 11:30
PROVIDERS: PCP Family Medicine; Visit Provider Internal Medicine Cardiovascular Disease
DX: R69 Illness, unspecified (principal)

== ENCOUNTER 2023-11-03 10:56 | Outpatient (RCR) | payer SELFPAY ==
[2023-10-06 00:07] VITALS: BP 135/72; PULSE 72
[2023-10-06 11:50] VITALS: BP 135/82; PULSE 75; O2SAT 87
[2023-10-11 11:26] VITALS: BP 126/74; PULSE 66
[2023-10-13 11:34] VITALS: BP 137/74; PULSE 68; O2SAT 91
[2023-10-20 11:00] VITALS: BP 142/75; PULSE 73; O2SAT 92
[2023-10-25 15:51] VITALS: BP 131/73; PULSE 74; O2SAT 87
[2023-10-27 11:47] VITALS: BP 133/79; PULSE 70; O2SAT 92
[2023-11-03 11:00] VITALS: BP 136/75; PULSE 75; O2SAT 94
== END 2023-11-05 23:59 | disposition home or self-care (01) ==
LOC: CR 10:56
PROVIDERS: PCP Family Medicine; Visit Provider Internal Medicine Cardiovascular Disease
DX: R69 Illness, unspecified (principal)

== ENCOUNTER 2023-11-08 10:46 | Outpatient (CLI) | payer MEDICARE, BC, SELFPAY ==
[2023-11-01 12:25] VITALS: BP 133/77; PULSE 70
--- NOTE | 2023-11-08 06:00 | DI.RAD_ITS ---
Exam(s) XR PAIN CLINIC LUMBAR SP 2V EXAM: XR PAIN CLINIC LUMBAR SP 2V CLINICAL HISTORY: Dx: Lumbar Radiculopathy TECHNIQUE: 2D and realtime digital imaging was performed. CONTRAST MATERIAL: Refer to procedure report. COMPARISON: No exams were available for comparison FINDINGS: Fluoroscopy was provided for Dr. French during the performance of a transforaminal epidural steroid in [facility]. Please refer to the procedure report for complete details. Ka,r=10.1 mGy IMPRESSION: RADIATION DOSE DELIVERED: 0.0 0.0 0
[2023-11-08 10:56] VITALS: BP 136/78; PULSE 70; RESP 20; TEMP 36.9; O2SAT 94
[2023-11-08 11:23] VITALS: BP 130/85; PULSE 63; RESP 12; O2SAT 97
[2023-11-08] MEDS: Omnipaque 240 MG/ML 50 ML BTL IJ (11:25)
[2023-11-08] MEDS: Nerve Block Tray 1 EACH MC (11:25)
[2023-11-08] MEDS: Dexamethasone Sod. Phos./Pres-Free 10 MG/ML VIAL IJ (11:26)
--- NOTE | 2023-11-08 12:24 | PDOC.PAIN_ITS ---
Date of service: 11/08/23 Time of Service: 12:24 Pain Managment Procedure Note Procedure Note Procedure Note: PROCEDURE NOTE RIGHT S1 TRANSFORAMINAL EPIDURAL STEROID INJECTION Chief Complaint: RIGHT leg pain. Date of Service: November 08, 2023 Patient: Yo Mckee Provider: Alexandro French DO, MPH Yo Mckee has been referred to the [facility] for a transforaminal epidural steroid injection. Pre-operative diagnosis: Lumbosacral Radiculopathy Post-operative diagnosis: Same Pre-Procedure Pain: VAS= 3/10 Comments: I previously evaluated the patient in our clinic and their symptoms remain the same as they were at that time. Yo was interviewed and the medical record reviewed. There were no medical, pharmacologic, radiographic or other structural contraindications to attempting a fluoroscopically-guided transforaminal lumbar epidural steroid injection. The risks, benefits, and potential side effects were reviewed with the patient. Risks include, but are not limited to, mgmd-ivokr-kkjrgrkd headache, infection, bleeding, nerve injury, spinal cord damage, allergic reaction, possible increase in symptoms over the ensuing 24 to 48 hours, paralysis, and . The patient appeared to understand, questions were answered to the patient?s satisfaction and the patient agreed to proceed. Once I obtained informed verbal consent, the printed consent form was signed by the patient and myself. A standard time-out procedure was performed. Yo was placed in the prone position on the fluoroscopy table and automated blood pressure cuff, three lead EKG, and pulse oximeter were applied. The skin entry point for entering/approaching the right S1 space for the transforaminal epidural steroid injection was marked. Following thorough chlorhexadine preparation of the skin and draping, 2 ml of 1% lidocaine was infiltrated into the skin over the entry point and subcutaneous tissues. Under fluoroscopic guidance, in ipsilateral oblique view, a co-axial approach using a 3.5 22G spinal needle was advanced into the right S1 neuroforamina. The needle was advanced to the superio-posterior aspect of the neural foramen under lateral view. Oblique and AP views were rechecked. Under AP and lateral views, 1 ml of Omnipaque-240 was injected while visualized with fluoroscopy. There was no evidence of intravascular or intrathecal uptake, the epidural space was delineated. Next 1.5 ml of preservative-free Dexamethasone (10 mg/ml) was injected after negative aspiration. This was followed by 1 ml of preservative- free 1% lidocaine. (49 mls of Omnipaque-240 was wasted) There was no unusual discomfort expressed by Yo. The needle was withdrawn without difficulty. Yo was observed and was without hemodynamic, neurologic, or allergic reactions.? Fluoroscopic images were digitally archived. Yo's vital signs were stable throughout the procedure and were as recorded in the docflowsheet by the nursing staff.? If given, dosages of intravenous drugs for anxiolysis and analgesia were documented in MAR. Follow up plans and appointments were discussed with Yo. Post procedure instruction was given as documented in nursing records and having met discharge criteria Yo was discharged from the [facility]. COMMENTS: Post-procedure pain: VAS= 0/10. Yo to contact [facility] as needed. If at least 50% improvement in pain and/or function for at least 3 months is achieved, this procedure can be repeated. I personally performed this entire procedure. ALEXANDRO FRENCH DO, MPH ABPMR-subspecialty board certification in Pain Medicine [facility]
== END 2023-11-08 10:47 | disposition home or self-care (01) ==
LOC: PC 10:47
PROVIDERS: PCP Family Medicine; Visit Provider Preventive Medicine Occupational Medicine
DX: M54.17 Radiculopathy, lumbosacral region (principal); M54.50 Low back pain, unspecified
CPT/HCPCS: 00123; 64483; 72100; J1100; Q9967

== ENCOUNTER 2023-12-05 11:23 | Outpatient (RCR) | payer SELFPAY ==
[2023-11-10 14:40] VITALS: BP 130/73; PULSE 61
[2023-11-15 11:11] VITALS: BP 132/71; PULSE 69
[2023-11-17 11:28] VITALS: BP 116/72; PULSE 76; O2SAT 91
[2023-11-22 11:16] VITALS: BP 121/69; PULSE 74; O2SAT 91
[2023-11-24 12:31] VITALS: BP 132/71; PULSE 92
[2023-11-29 15:28] VITALS: BP 131/72; PULSE 65; O2SAT 93
[2023-12-05 11:30] VITALS: BP 127/77; PULSE 66; O2SAT 93
== END 2023-12-05 23:59 | disposition home or self-care (01) ==
LOC: CR 11:23
PROVIDERS: PCP Family Medicine; Visit Provider Internal Medicine Cardiovascular Disease
DX: R69 Illness, unspecified (principal)

== ENCOUNTER 2023-12-29 11:23 | Outpatient (RCR) | payer SELFPAY ==
[2023-12-20 13:02] VITALS: BP 116/69; PULSE 72; O2SAT 94
[2023-12-27 13:28] VITALS: BP 135/74; PULSE 64; O2SAT 88
[2023-12-29 11:00] VITALS: BP 131/71; PULSE 66; O2SAT 89
== END 2024-01-05 23:59 | disposition home or self-care (01) ==
LOC: CR 11:23
PROVIDERS: PCP Family Medicine; Visit Provider Internal Medicine Cardiovascular Disease
DX: R69 Illness, unspecified (principal)

== ENCOUNTER 2024-07-26 11:07 | Outpatient (RCR) | payer SELFPAY ==
[2024-07-10 11:28] VITALS: BP 113/66; PULSE 79
[2024-07-12 11:07] VITALS: BP 117/73; PULSE 79; O2SAT 92
[2024-07-16 11:37] VITALS: BP 117/68; PULSE 83; O2SAT 91
[2024-07-19 11:21] VITALS: BP 125/72; PULSE 71; O2SAT 91
[2024-07-26 12:44] VITALS: BP 109/76; PULSE 71
== END 2024-08-06 23:59 | disposition home or self-care (01) ==
LOC: CR 11:07
PROVIDERS: PCP Family Medicine; Visit Provider Internal Medicine Cardiovascular Disease
DX: J44.0 Chronic obstructive pulmonary disease with (acute) lower respiratory infection (principal)

== ENCOUNTER 2024-09-06 11:00 | Outpatient (RCR) | payer SELFPAY ==
[2024-08-09 12:55] VITALS: BP 110/67; PULSE 73; O2SAT 96
[2024-08-14 12:32] VITALS: BP 99/64; PULSE 74; O2SAT 94
[2024-08-30 11:07] VITALS: BP 112/70; PULSE 72; O2SAT 93
[2024-09-04 11:34] VITALS: BP 128/74; PULSE 69; O2SAT 95
[2024-09-06 11:28] VITALS: BP 102/62; PULSE 70; O2SAT 94
== END 2024-09-06 23:59 | disposition home or self-care (01) ==
LOC: CR 11:00
PROVIDERS: PCP Family Medicine; Visit Provider Internal Medicine Cardiovascular Disease
DX: R69 Illness, unspecified (principal)

== ENCOUNTER 2024-10-04 11:06 | Outpatient (RCR) | payer SELFPAY ==
[2024-09-11 11:31] VITALS: BP 119/75; PULSE 78; O2SAT 93
[2024-09-13 11:26] VITALS: BP 151/69; PULSE 66; O2SAT 96
[2024-09-18 11:04] VITALS: BP 112/74; PULSE 72; O2SAT 92
[2024-09-25 12:16] VITALS: BP 102/69; PULSE 67; O2SAT 95
[2024-09-27 11:07] VITALS: BP 109/73; PULSE 76; O2SAT 96
[2024-10-02 12:26] VITALS: BP 109/70; PULSE 76; O2SAT 90
[2024-10-04 11:30] VITALS: BP 117/74; PULSE 71; O2SAT 93
== END 2024-10-04 23:59 | disposition home or self-care (01) ==
LOC: CR 11:06
PROVIDERS: PCP Family Medicine; Visit Provider Internal Medicine Cardiovascular Disease
DX: R69 Illness, unspecified (principal)

== ENCOUNTER 2024-10-18 00:05 | Outpatient (CLI) | payer MEDICARE, BC, SELFPAY ==
[2024-10-16 11:13] VITALS: BP 119/73; PULSE 81; O2SAT 93
--- NOTE | 2024-10-18 07:00 | DI.MRI_ITS ---
Exam(s) MR LUMBAR SPINE WO EXAM: MR LUMBAR SPINE WO CLINICAL HISTORY: recurrent low back pain,new rt foot drop,M54.50,M21.371. TECHNIQUE: Multiplanar multisequence MRI of the Lumbar spine was performed. COMPARISON: CR XR LUMBAR SPINE COMPLETE from 08/09/2023 MR MR LUMBAR SPINE WO from 08/24/2023 FINDINGS: Bones: The last intervertebral disc space is designated the L5/S1 level for the numbering purpose of this examination. There is partial fusion of the L4-L5 vertebra. There is a left convex curvature of the lumbar spine. There are endplate degenerative signal changes present. Cord: The conus tip ends at the L1-L2 level. It is of normal size and signal intensity. T12-L1: There is a diffuse disc bulge. Mild narrowing of the central spinal canal is noted. There i s mild bilateral neural foraminal stenosis. L1-2: There is a diffuse disc bulge. Degenerative changes of the facets are seen. No significant ce ntral spinal canal stenosis is present. There is marked right neural foraminal stenosis. No signifi cant left neural foraminal stenosis is present. L2-3: There is a diffuse disc bulge. There are degenerative changes of the facets and hypertrophy of the ligamentum flavum. There is moderate narrowing of the central spinal canal. There is moderate bilateral neural foraminal stenosis. L3-4: There is a diffuse disc bulge. There are hypertrophic changes of the facets and ligamentum fla vum. There is marked central spinal canal stenosis. There is moderate right and marked left neural foraminal stenosis. L4-5: There is a prominent osteophyte posteriorly. Degenerative changes of the facets are seen. Mil d narrowing of the central spinal canal is present. There is moderate bilateral neural foraminal scotty nosis. L5-S1: There is a prominent osteophyte posteriorly and a diffuse disc bulge. There are degenerative changes of the facets and hypertrophy of the ligamentum flavum. Mild narrowing of the central spinal canal is noted. There is marked bilateral neural foraminal stenosis. Soft tissues: The visualized SI joints and sacrum are well maintained. The paraspinal soft tissues ar e unremarkable. 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 No follow-up is recommended. IMPRESSION: 1. 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 2. Central spinal canal stenosis is most severe at L2-3 and L3-L4. 3. Neural foraminal stenosis is most severe at L5-S1. DATA REPOSITORY:
[2024-10-23 11:13] VITALS: BP 121/73; PULSE 65; O2SAT 96
== END 2024-10-18 00:25 ==
PROVIDERS: PCP Family Medicine; Visit Provider Family Medicine
DX: M21.371 Foot drop, right foot (principal); M48.02 Spinal stenosis, cervical region; M99.61 Osseous and subluxation stenosis of intervertebral foramina of cervical region
CPT/HCPCS: 72148

== ENCOUNTER 2024-10-23 03:44 | Outpatient (CLI) | payer MEDICARE, BC, SELFPAY ==
[2024-10-23 11:18] LABS: CREATININE 0.9 mg/dL (0.70-1.30); Estimated GFR 87.96 (mL/min/1.73m2)
[2024-10-23 18:24] LABS: Hepatitis C Ab w Rflx HCV PCR Negative (Negative)
[2024-10-23 18:27] LABS: HIV-1/2 Ag & Ab Screen Negative (Negative)
[2024-10-23 18:31] LABS: HBs Antibody, Quant <3.1 mIU/mL (See Note); Hep B Surface Ab Negative (See Note); Hepatitis B Core Antibody Negative (Negative); Hepatitis B Surface Antigen Negative (Negative)
== END 2024-10-23 03:45 | disposition home or self-care (01) ==
LOC: LBO 03:45
PROVIDERS: Otolaryngology; PCP Family Medicine; Visit Provider Family Medicine
DX: Z11.59 Encounter for screening for other viral diseases (principal); C02.1 Malignant neoplasm of border of tongue
CPT/HCPCS: 36415; 86704; 86706; 86803; 87340; 87389; 82565

== ENCOUNTER 2024-11-01 11:18 | Outpatient (RCR) | payer SELFPAY ==
[2024-10-09 11:17] VITALS: BP 119/74; PULSE 72; O2SAT 93
[2024-10-11 11:08] VITALS: BP 114/71; PULSE 65; O2SAT 95
[2024-10-25 14:58] VITALS: BP 114/75; PULSE 70; O2SAT 97
[2024-10-30 11:27] VITALS: BP 118/79; PULSE 69; O2SAT 96
[2024-11-01 11:30] VITALS: BP 113/75; PULSE 78; O2SAT 93
== END 2024-11-04 23:59 | disposition home or self-care (01) ==
LOC: CR 11:18
PROVIDERS: PCP Family Medicine; Visit Provider Internal Medicine Cardiovascular Disease
DX: R69 Illness, unspecified (principal)

== ENCOUNTER → 2024-11-07 14:41 | Outpatient (BNVA) | payer MEDICARE, BC, SELFPAY | PROVIDERS: PCP Family Medicine; Referring Provider Family Medicine; Visit Provider Student in an Organized Health Care Education/Training Program | DX: M20.012 Mallet finger of left finger(s) (principal); X50.9XXA Other and unspecified overexertion or strenuous movements or postures, initial encounter | CPT/HCPCS: 99213 ==

== ENCOUNTER 2024-11-13 13:44 | Outpatient (CLI) | payer MEDICARE, BC, SELFPAY ==
--- NOTE | 2024-11-13 06:00 | DI.RAD_ITS ---
Exam(s) XR PAIN CLINIC LUMBAR SP 2V EXAM: XR PAIN CLINIC LUMBAR SP 2V CLINICAL HISTORY: Dx: Lumbar Radiculopathy TECHNIQUE: 2D and realtime digital imaging was performed. CONTRAST MATERIAL: Refer to procedure report. COMPARISON: No exams were available for comparison FINDINGS: Fluoroscopy was provided for Dr. Llamas during the performance of a transforaminal epidural steroid injection. Please refer to the procedure report for complete details. Ka,r=17.5 mGy IMPRESSION: RADIATION DOSE DELIVERED: 0.0 0.0 0
[2024-11-13 14:15] VITALS: BP 113/71; PULSE 80; RESP 18; TEMP 36.6; O2SAT 96
[2024-11-13 14:34] VITALS: PULSE 83; O2SAT 90
[2024-11-13 14:40] VITALS: PULSE 75; O2SAT 97
--- NOTE | 2024-11-13 14:52 | PDOC.PAIN ---
Date of service: 11/13/24 Time of Service: 14:56 Pain Managment Procedure Note Procedure Note Procedure Note: Lumbar Transforaminal Epidural Steroid Injection ? Location: RIGHT L5 and S1 ? Pre-procedure Diagnosis: M54.17-Radiculopathy, lumbosacral region M54.16 Radiculopathy, lumbar region ? Post-procedure Diagnosis:? The same as above ? Sedation:? none ? Estimated blood loss:? less than 2 cc ? Surgeon:? Zac Llamas MD COMMENT: patient has right L5/S1 radiculopathy with foot drop. Procedure Detail:?? The procedure and potential risks were explained to the patient and informed written consent was obtained. The patient was escorted to the procedure room and placed in the prone position. Pillows were utilized for proper positioning and comfort. Time out was performed in the procedure room with nursing staff confirming the patient's identity, procedure to be performed, allergies, and any blood thinning or anti-platelet medications. The patient's lower back was prepped with ChloraPrep and draped in a sterile fashion. Sterile gloves were used, a face mask was worn, and new single dose vials of all medications were used with the top being swabbed with alcohol and given time to dry prior to withdrawal of medication. A qssflc-zz-glzxv oblique fluoroscopic view was obtained, with visualization of L5-S1. Lidocaine 1% was used to anesthetize the skin. The tip of a 22-gauge, Quincke needle was advanced toward the 6 o'clock position of the superior pedicle at the target level.? It was advanced just under the pedicle to the neural foramen L5-S1. Correct needle placement was confirmed through review of the fluoroscopy. Next, following negative aspiration, 1cc's of Omnipaque 240 contrast was injected under live fluoroscopy which showed good flow throughout the epidural space and no evidence of vascular flow or flow into adjacent compartments. Next, following negative aspiration, 40mg Depo-Medrol and 0.5ml of 0.5% bupivacaine was injected. The needle was gently removed.? The procedure was also performed in the same fashion at right S1.? The patient tolerated the procedure well.? Permanent images saved and recorded. Plan:? Follow up prn PAIN: PRE PROCEDURE 0/10 POST PROCEDURE 0/10 COMMENT: Patient has surgical consult pending with Dr. Ashford at . He will follow-up with me as needed Coding Conscious Sedation used for procedure: No CPT Codes: Transforaminal Lumbar/Sacral (includes fluoro) - 57050 ([id number] ~G) Transforaminal Lumbar/Sacral (includes Fluoro) each add'l - 46731 ([id number] ~G) Additional Codes: Date of Service (88967) Date of service: 11/13/24
[2024-11-13] MEDS: Nerve Block Tray 1 EACH MC (14:58)
[2024-11-13] MEDS: Bupivacaine 0.5% Pres-Free 10 ML VIAL IJ (14:58)
[2024-11-13] MEDS: Omnipaque 240 MG/ML 50 ML BTL IJ (14:58)
[2024-11-13] MEDS: methylPREDNISolone ACETATE 40 MG/ML VIAL IJ (14:59)
== END 2024-11-13 13:45 | disposition home or self-care (01) ==
LOC: PC 13:44
PROVIDERS: PCP Family Medicine; Visit Provider Anesthesiology Pain Medicine
DX: M54.50 Low back pain, unspecified (principal); M54.16 Radiculopathy, lumbar region; M54.17 Radiculopathy, lumbosacral region
CPT/HCPCS: 64483; 64484; 72100; 76000; J0665; J1010; Q9967

== ENCOUNTER 2024-11-29 11:05 | Outpatient (RCR) | payer SELFPAY ==
[2024-11-05 00:21] VITALS: BP 113/75; PULSE 78
[2024-11-06 11:20] VITALS: BP 108/74; PULSE 76; O2SAT 94
[2024-11-08 12:16] VITALS: BP 116/71; PULSE 77; O2SAT 95
[2024-11-13 11:31] VITALS: BP 111/72; PULSE 71; O2SAT 91
[2024-11-15 14:38] VITALS: BP 117/71; PULSE 72; O2SAT 96
[2024-11-20 11:35] VITALS: BP 124/58; PULSE 81; O2SAT 97
[2024-11-22 11:06] VITALS: BP 119/76; PULSE 82; O2SAT 94
[2024-11-27 11:36] VITALS: BP 112/70; PULSE 61; O2SAT 97
[2024-11-29 11:08] VITALS: BP 120/73; PULSE 78; O2SAT 96
== END 2024-12-04 23:59 | disposition home or self-care (01) ==
LOC: CR 11:05
PROVIDERS: PCP Family Medicine; Visit Provider Internal Medicine Cardiovascular Disease
DX: R69 Illness, unspecified (principal)

== ENCOUNTER 2024-12-20 11:00 | Outpatient (RCR) | payer SELFPAY ==
[2024-12-05 00:21] VITALS: BP 113/75; PULSE 78
[2024-12-20 11:15] VITALS: BP 110/67; PULSE 80; O2SAT 92
== END 2025-01-04 23:59 | disposition home or self-care (01) ==
LOC: CR 11:00
PROVIDERS: PCP Family Medicine; Visit Provider Internal Medicine Cardiovascular Disease

== ENCOUNTER 2025-08-05 11:00 | Outpatient (RCR) | payer SELFPAY ==
[2025-01-05 00:23] VITALS: BP 113/75; PULSE 78
[2025-07-08 12:54] VITALS: BP 114/70; PULSE 65; O2SAT 93
[2025-07-15 11:45] VITALS: BP 116/73; PULSE 62; O2SAT 96
[2025-07-17 11:13] VITALS: BP 108/70; PULSE 66; O2SAT 94
[2025-07-24 11:16] VITALS: BP 110/68; PULSE 69; O2SAT 95
[2025-07-29 11:12] VITALS: BP 133/79; PULSE 83; O2SAT 94
[2025-08-05 11:36] VITALS: BP 123/74; PULSE 78; O2SAT 92
== END 2025-08-06 23:59 | disposition home or self-care (01) ==
LOC: CR 11:00
PROVIDERS: PCP Family Medicine; Visit Provider Internal Medicine Cardiovascular Disease
DX: R69 Illness, unspecified (principal)